=== PATIENT | female | born 1975 | race Caucasian/White ===

== ENCOUNTER 2021-09-12 12:26 | Outpatient (CLI) | payer OTHER, SELFPAY ==
--- NOTE | ~2021-09-12 | US_ITS ---
US thyroid INDICATION: Multinodular goiter TECHNIQUE: Real-time sonographic images of the thyroid gland were obtained. COMPARISON: No prior studies for comparison. FINDINGS: The right thyroid lobe measures 4.2 x 1.7 x 1.7 cm. The left thyroid lobe measures 4 x 1.6 x 1.6 cm. There is normal echotexture and echogenicity throughout the thyroid gland. There is a sept ated cyst measuring 9 mm in the left lobe, benign. Normal vascular flow is present. IMPRESSION: 1. Septated left thyroid cyst measuring 9 mm, benign. Otherwise, unremarkable thyroid ultrasound. Reviewed, dictated and finalized at location A. BOSCOPE OPERATOR
== END 2021-09-12 12:27 | disposition home or self-care (01) ==
LOC: CHSIMG 12:28
PROVIDERS: PCP Physician Assistant; Visit Provider Physician Assistant
DX: E04.2 Nontoxic multinodular goiter (principal)
CPT/HCPCS: 76536

== ENCOUNTER 2021-10-25 08:30 | Outpatient (CLI) | payer OTHER, SELFPAY ==
--- NOTE | ~2021-10-25 | MM_ITS ---
EXAMINATION: MM screening eugene BI w shavonne HISTORY: Screening TECHNIQUE: Craniocaudal and mediolateral oblique 3-D tomosynthesis images were obtained and synthetic 2-D images were generated. CAD analysis was submitted and interpreted. COMPARISON: No prior mammogram is available for comparison at this institution. BREAST PARENCHYMAL COMPOSITION: There are scattered areas of fibroglandular density. FINDINGS: There is no evidence of suspicious mass, calcification, or architectural distortion to sugg est malignancy in either breast. There has been no suspicious interval change. IMPRESSION: 1. No mammographic evidence of malignancy. 2. Recommend routine screening mammography in one year. BI-RADS Category 1: Negative Reviewed, dictated and finalized at location A. CH DRAWER
== END 2021-10-25 08:31 | disposition home or self-care (01) ==
LOC: CHSIMG 08:31
PROVIDERS: PCP Family Medicine; Visit Provider Physician Assistant
DX: Z12.31 Encounter for screening mammogram for malignant neoplasm of breast (principal)
CPT/HCPCS: 77063; 77067

== ENCOUNTER 2021-11-14 11:26 | Outpatient (CLI) | payer OTHER, SELFPAY ==
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
== END 2021-11-14 11:27 | disposition home or self-care (01) ==
LOC: CHSIMG 11:27
PROVIDERS: PCP Family Medicine; Visit Provider Physician Assistant
DX: M54.50 Low back pain, unspecified (principal); M54.9 Dorsalgia, unspecified
CPT/HCPCS: 72072; 72100

== ENCOUNTER 2022-01-10 08:24 | Outpatient (CLI) | payer OTHER, SELFPAY ==
--- NOTE | ~2022-01-10 | MR_ITS ---
EXAMINATION: MR lumbar spine wo con DATE: 01/10/2022 09:34 INDICATION: Thoracic back pain. TECHNIQUE: Magnetic resonance imaging (MRI) of the lumbar spine was performed without intravenous con trast. Sequences included sagittal T2-weighted FSE, sagittal T2-weighted FS FSE, sagittal T1-weighted FSE, and axial T2-weighted FSE. COMPARISON: Lumbar spine radiograph 11/14/2021 FINDINGS: Bone alignment is normal. Vertebral body heights and intervertebral disc heights are normal . The distal spinal cord signal intensity is normal. The conus medullaris is at L1. The following dis c levels are specifically discussed: L1-L2: The disc does not extend beyond the endplate margin. There is mild bilateral facet joint osteo arthritis. There is no neural foraminal stenosis. There is no central canal stenosis. L2-L3: The disc does not extend beyond the endplate margin. There is severe bilateral facet joint ost eoarthritis. There is no neural foraminal stenosis. There is no central canal stenosis. L3-L4: The disc does not extend beyond the endplate margin. There is severe bilateral facet joint ost eoarthritis. There is no neural foraminal stenosis. There is no central canal stenosis. L4-L5: The disc is bulging and has an annular fissure. There is moderate bilateral facet joint osteoa rthritis. There is mild bilateral neural foraminal stenosis. There is mild central canal stenosis. L5-S1: The disc is bulging and has an annular fissure. There is severe bilateral facet joint osteoart hritis. There is mild right neural foraminal stenosis. There is mild central canal stenosis. IMPRESSION: 1. Mild lumbar spondylosis. Reviewed, dictated and finalized at location B. IMPRESSION: 1. Mild lumbar spondylosis.
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
== END 2022-01-10 08:25 | disposition home or self-care (01) ==
LOC: CHSIMG 08:25
PROVIDERS: PCP Family Medicine; Visit Provider Family Medicine
DX: M54.6 Pain in thoracic spine (principal)
CPT/HCPCS: 72146; 72148

== ENCOUNTER 2022-02-06 16:00 | Outpatient (RCR) | payer OTHER, SELFPAY ==
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
--- NOTE | 2022-05-10 08:31 | PCPTNOTE ---
Pt. attended one treatment session on 02/06/22. she failed to attend any further sessions and will be discharged from our care.
== END 2022-02-06 23:59 | disposition home or self-care (01) ==
LOC: CHSPT 16:00
PROVIDERS: PCP Family Medicine; Visit Provider Family Medicine
DX: M54.50 Low back pain, unspecified (principal)
CPT/HCPCS: 97014; 97110; 97161; G0283

== ENCOUNTER 2025-09-12 12:08 | Outpatient (CLI) | payer OTHER, SELFPAY ==
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
--- OUTSIDE RECORDS SUMMARY | 2025-09-12 12:15 | XMS_ITS | Clinical Summary ---
Author Organization [facility] Address [facility] [place] [address] Care Team Providers Care Welfare Eligibility Interviewer Name Role Phone Zia Hale MD Primary Care Provider [phone] Allergies No known active allergies Medications albuterol sulfate HFA 108 (90 Base) MCG/ACT inhaler Inhale 2 puffs into the lungs every 6 (six) hours as needed for Wheezing. 18 Inhaler 05/27/2019 Active budesonide-formo terol (SYMBICORT) 160-4.5 MCG/ACT inhaler Inhale 2 puffs into the lungs 2 (two) times daily. Active Family History Medical History Relation Comments Heart Disease Father Diabetes Mother Heart Disease Paternal Grandmother Relation Status Comments Father Mother Paternal Grandmother Social History Tobacco Use Types Packs/Day Years Used Date Smoking Tobacco: Former Smokeless Tobacco: Never Tobacco Cessation:Counseling Given: Not Answered Comments:pt quit 25 years ago Alcohol Use Standard Drinks/Week Comments No 0 (1 standard drink = 0.6 oz pur e alcohol) AUDIT-C Answer Date Recorded Frequency of Alcohol Consumption Never 05/27/2019 Average Number of Drinks Not on file 019 Frequency of Binge Drinking Not on file 11/2018 Comments No Sex and Gender Information Value Date Recorded Sex Assigned at Female 01/30/2025 8:05 AM CDT 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 Gender Identity Not on file Sexual Orientation Not on file Last Filed Vital Signs Vital Sign Reading Time Taken Comments Blood Pressure 105/71 04/26/2025 4:45 AM CDT Pulse 70 04/26/2025 1:25 AM CDT Temperature 36.6 C (97.9 F) 04/26/2025 12:33 AM CDT Respiratory Rate 16 04/26/2025 12:33 AM CDT Oxygen Saturation 98% 04/26/2025 4:45 AM CDT Inhaled Oxygen Concentration - - Weight 81.6 kg (180 lb) 04/26/2025 12:33 AM CDT Height 175.3 cm (5' 9) 04/26/2025 12:33 AM CDT Body Mass Index 26.58 04/26/2025 12:33 AM CDT Plan of Treatment Health Maintenance Due Date Last Done Comments Cervical Cancer Screening Pa p Smear (Age 30 to 64) Every 3 Years 1974 Colorectal Cancer Screening Colonoscopy (10 Years) 1974 Annual Physical 1977 Hepatitis C 01/23/1992 Hepatitis B Vaccines (1 of 3 - 19+ 3-dose series) 1993 Cervical Cancer Screening Pa p with HPV Testing (Age 30 to 64) Every 5 Years 01/23/2004 Cervical Cancer Screening with HPV 01/23/2004 Mammogram Screening 2014 Pneumococcal Vaccine: 50+ Ye ars (1 of 1 - PCV) 01/23/2024 Zoster Vaccines (1 of 2) 01/23/2024 COVID-19 Vaccine (1 - 2024-2 6 season) 2025 Influenza Adult (#1) 2025 DTaP, Tdap and Td Vaccines ( 2 - Td or Tdap) 01/21/2035 01/21/2025 Hepatitis A Vaccines Aged Out No long er eligible based on patient's age to complete this topic Meningococcal B Vaccine Aged Out No l onger eligible based on patient's age to complete this topic Meningococcal Vaccine Aged Out No radha vinita eligible based on patient's age to complete this topic RSV Immunizations Under 20 Months Aged Out No longer eligible based on patient's age to complete this topic Insurance GENERIC - COMMERCIAL JUSTIN LOCKWOOD Care Teams Welfare Eligibility Interviewer Relationship Specialty Start Date End Date Zia Hale MD [address] [place] [phone] PCP - General FAMILY PRACTICE 05/27/19
--- OUTSIDE RECORDS SUMMARY | 2025-09-12 12:15 | XMS_ITS | Clinical Summary ---
Author Organization [facility] Address [address] [place] [address] Care Team Providers Care Movers Name Role Phone Zia Hale MD Primary Care Provider Allergies No known active allergies Medications albuterol HFA (PROVENTIL HFA,VENTOLIN HFA,PROAIR HFA) 90 mcg/actuation inhalerIndications :Acute Asthma Attack Inhale 2 puffs every 6 (six) hours as needed for wheezing Active acetaminophen-code ine (TYLENOL with CODEINE #4) 300-60 mg per tabletIndications: Closed displaced fracture of neck of fifth metacarpal bone of right hand, initial encounter,Open fracture of tuft of distal phalanx of finger Take 1 tablet by mouth every 4 (four) hours as needed for pain Take as directed with food. Collaborating physician Brien Nelson MD 12 tablet 01/22/20 25 Active ondansetron ODT (ZOFRAN-ODT) 4 mg disintegrating tablet Take 1 tablet (4 mg total) by mouth every 8 (eight) hours as needed for nausea Collaborating physician Brien Nelson MD 10 tablet 01/22/20 25 Active Active Problems Problem Noted Date Diagnosed Date Closed displaced fracture of neck of right fifth metacarpal bone 01/21/2025 Open fracture of tuft of distal phalanx of finge r 01/21/2025 DYANA (acute kidney injury) 06/18/2023 Immunizations Immunization Administration Dates Next Due Tdap 01/21/2025 Medical History Medical History Date Comments Asthma Social History Tobacco Use Types Packs/Day Years Used Date Smoking Tobacco: Former Cigarettes Passive Smoke Exposure: Never Tobacco Cessation:Counseling Given: Not Answered Social Connection and Isolation Panel Answer Date Recorded In a typical week, how many times do you talk on the phone with family, friends, or neighbors? More than three times a week 06/19/2023 How often do you get togethe r with friends or relatives? Twice a week 06/19/2023 How often do you attend chur ch or denominational services? Never 06/19/2023 Do you belong to any clubs o r organizations such as pentecostal groups, unions, fraternal or athletic groups, or school groups? No 06/19/2023 How often do you attend meet ings of the clubs or organizations you belong to? Never 06/19/2023 Are you , , di vorced, , never , or living with a partner? 06/19/2023 AUDIT-C Answer Date Recorded Q1: How often do you have a drink containing alc ohol? Never 06/18/2023 Average Number of Drinks Not on file 023 Frequency of Binge Drinking Not on file 05/26 Overall Financial Resource Strain (CARDIA) Answe r Date Recorded How hard is it for you to pa y for the very basics like food, housing, medical care, and heating? Not hard at all 06/19/2023 Hunger Vital Sign Answer Date Recorded Within the past 12 months, y ou worried that your food would run out before you got the money to buy more. Never true 06/19/20 23 Within the past 12 months, t he food you bought just didn't last and you didn't have money to get more. Never true 06/19/2023 PRAPARE - Transportation Answer Date Re corded In the past 12 months, has l ack of transportation kept you from medical appointments or from getting medications? No 05/26 In the past 12 months, has l ack of transportation kept you from meetings, work, or from getting things needed for daily living? No 06/19/2023 Housing Stability Vital Sign Answer Harrison e Recorded In the last 12 months, was t here a time when you were not able to pay the mortgage or rent on time? No 06/19/2023 In the last 12 months, how many places have you lived? 1 06/19/2023 In the last 12 months, was t here a time when you did not have a steady place to sleep or slept in a usp (including now)? No 06/19/2023 Personal Safety Answer Date Recorded Have you ever been in or are you currently in a harmful physical or emotional relationship or is someone making you feel afraid or unsafe? Denies 01/21/2025 Education Answer Date Recorded What is the highest level of school you have completed or the highest degree you have received? GED or equivalent Comments No Sex and Gender Information Value Date Recorded Sex Assigned at Not on file Legal Sex Female 4:41 PM CDT Gender Identity Not on file Sexual Orientation Not on file Last Filed Vital Signs Vital Sign Reading Time Taken Comments Blood Pressure 129/79 01/21/2025 12:12 PM CDT Pulse 72 01/21/2025 12:12 PM CDT Temperature 36.9 C (98.4 F) 01/21/2025 12:12 PM CDT Respiratory Rate 20 01/21/2025 12:12 PM CDT Oxygen Saturation 96% 01/21/2025 12:12 PM CDT Inhaled Oxygen Concentration - - Weight 81.6 kg (180 lb) 01/21/2025 12:12 PM CDT Height 172.7 cm (5' 8) 01/21/2025 12:12 PM CDT Body Mass Index 27.37 01/21/2025 12:12 PM CDT Plan of Treatment Health Maintenance Due Date Last Done Comments Breast Cancer Screening-Mammogram 1974 Cervical Cancer Screening 1974 Colon Cancer Screening-Colonoscopy 1974 Depression Screening 1974 Hepatitis C Screening 1974 Regular Well Visit/Exam 18-64 01/23/1992 Zoster Vaccine (1 of 2) 01/23/2024 Influenza Vaccine (#1) 2025 DTaP/Tdap/Td Vaccine (2 - Td or Tdap) 01/21/2035 01/21/2025 Hepatitis B Screening Completed 08/18/2009 , 12/24/2008, 11/25/2008 Pneumococcal vaccine <65 Aged Out No longer eligible based on patient's age to complete this topic Insurance [facility] Member Subscriber Plan / Payer (Ef fective 2023-Present) Name:Ajay Sultana Relation to Subscriber:Self Name:Ajay Sultana Payer ID:[id number] (NAIC) Group ID:Not on file Type:MEDICAID RISK OTHER Address: ATTN: [employer] [place] [id number] WORKERS COMPENSATION GENERIC * Guarantor: TAIWO Account Type Relation to Patient Date of Phone Billing Address Workers Comp Employer [employer] Advance Directives For more information, please contact: [phone] * Full Code (Latest Code Status on File) Date Activated Date Inactivated Comments 06/18/2023 9:04 PM 06/19/2023 5:31 PM Care Teams Movers Relationship Specialty Start Date End Date Zia Hale MD PCP - General Family Medicine 04/22/20
--- OUTSIDE RECORDS SUMMARY | 2025-09-12 12:15 | XMS_ITS | Encounter Summary ---
Author Organization [facility] Address [facility] [place] [address] Care Team Providers Care Data Warehouse Administrator Name Role Phone Zia Hale MD Primary Care Provider [phone] Encounter Details Date Type Department Care Team (Late st Contact Info) Description 03/01/2019 Abstract [facility]FL CONVERSION [address] [place] [address] , Generic Conversion, Social History Tobacco Use Types Packs/Day Years Used Date Smoking Tobacco: Never Assessed Comments Unknown Sex and Gender Information Value Date Recorded Sex Assigned at Female 01/30/2025 8:05 AM CDT 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 Gender Identity Not on file Sexual Orientation Not on file documented as of this encounter Plan of Treatment Not on file documented as of this encounter Visit Diagnoses Not on filedocumented in this encounter Additional Health Concerns Infection Onset Date Last Indicated Resolved Time COVID-19 Rule Out 11/10/2022 11/10/2022 11/10/2022 6:37 PM CAN REPAIRER COVID-19 Rule Out 09/22/2023 09/22/2023 09/22/2023 11:39 PM CAN REPAIRER documented as of this encounter Care Teams Data Warehouse Administrator Relationship Specialty Start Date End Date Zia Hale MD [address] [place] [id number] PCP - General FAMILY PRACTICE 05/27/19 documented as of this encounter
== END 2025-09-12 12:09 | disposition home or self-care (01) ==
PROVIDERS: PCP Physician Assistant; Visit Provider Family Medicine
DX: R07.89 Other chest pain (principal); R91.8 Other nonspecific abnormal finding of lung field; J98.11 Atelectasis
CPT/HCPCS: 71046; 71100